=== PATIENT | female | born 1970 | race Two or more races ===

== ENCOUNTER 2018-03-23 17:45 | Emergency (ER) | payer SELFPAY ==
[2018-03-23 17:58] VITALS: BP 144/77
[2018-03-23] MEDS ORDERED: PREDNISONE 20 MG TABLET PO ONE (21:57)
[2018-03-23] MEDS ORDERED: IPRATROPIUM/ALBUTEROL 0.5-2.5 MG/3 ML AMPUL NEB ONE (21:57)
--- NOTE | 2018-03-24 04:02 | ER Document Report ---
ED General - General Chief Complaint: Cough Stated Complaint: COUGH Time Seen by Provider: 03/23/18 19:36 TRAVEL OUTSIDE OF THE [place] IN LAST 30 DAYS: No - HPI Patient complains to provider of: Cough Notes: Patient coming in for evaluation of cough feeling unwell for greater than 48 hours. Patient is mostly [place]-speaking with friend at bedside translating. Patient does indicate that she is okay with this denies any fever chills nausea vomiting states a history of asthma. States that history are nasal drainage. Patient resting company upon my evaluation no recent antibiotics - Related Data Allergies/Adverse Reactions: No Known Allergies Allergy (Verified 03/23/18 17:46) Past Medical History - Social History Smoking Status: Never Smoker Family History: Reviewed & Not Pertinent Patient has suicidal ideation: No Patient has homicidal ideation: No Renal/ Medical History: Denies: Hx Peritoneal Dialysis Review of Systems - Review of Systems Constitutional: No symptoms reported EENT: No symptoms reported Cardiovascular: No symptoms reported Respiratory: Cough Gastrointestinal: No symptoms reported Genitourinary: No symptoms reported Female Genitourinary: No symptoms reported Musculoskeletal: No symptoms reported Skin: No symptoms reported Hematologic/Lymphatic: No symptoms reported Neurological/Psychological: No symptoms reported -: Yes All other systems reviewed and negative Physical Exam - Vital signs Vitals: Temp Pulse Resp BP Pulse Ox 98.3 F 75 16 144/77 H 97 03/23/18 17:57 03/23/18 17:57 03/23/18 17:57 03/23/18 17:57 03/23/18 17:57 Interpretation: Normal - General General appearance: Appears well, Alert - HEENT Head: Normocephalic, Atraumatic Eyes: Normal Pupils: PERRL - Respiratory Respiratory status: No respiratory distress Chest status: Nontender Breath sounds: Normal Chest palpation: Normal - Cardiovascular Rhythm: Regular Heart sounds: Normal auscultation Murmur: No - Abdominal Inspection: Normal Distension: No distension Bowel sounds: Normal Tenderness: Nontender Organomegaly: No organomegaly - Back Back: Normal, Nontender - Extremities General upper extremity: Normal inspection, Nontender, Normal color, Normal ROM , Normal temperature General lower extremity: Normal inspection, Nontender, Normal color, Normal ROM , Normal temperature, Normal weight bearing. No: Rebecca's sign - Neurological Neuro grossly intact: Yes Cognition: Normal Orientation: AAOx4 [place]ie Coma Scale Eye Opening: Spontaneous [place] Coma Scale Verbal: Oriented [place] Coma Scale Motor: Obeys Commands [place] Coma Scale Total: 15 Speech: Normal Motor strength normal: LUE, RUE, LLE, RLE Sensory: Normal - Psychological Associated symptoms: Normal affect, Normal mood - Skin Skin Temperature: Warm Skin Moisture: Dry Skin Color: Normal Course - Re-evaluation Re-evalutation: 03/24/18 04:02 Patient's initial evaluation revealing slight wheezing told patient that we will give her breathing treatment and a x-ray however prior to me ordering these modalities was called into trauma room for a cardiac arrest notified by the nursing staff later the patient had eloped without having any treatment performed - Vital Signs Vital signs: Temp Pulse Resp BP Pulse Ox 98.3 F 75 16 144/77 H 97 03/23/18 17:57 03/23/18 17:57 03/23/18 17:57 03/23/18 17:57 03/23/18 17:57 Discharge - Discharge Clinical Impression: Cough Disposition: ELOPED
== END 2018-03-23 22:00 | disposition left against medical advice (07) ==
LOC: ER 17:45
DX: R05 Cough (principal)
CPT/HCPCS: 99281